=== PATIENT | female | born 1955 | race Caucasian/White ===

== ENCOUNTER 2025-02-01 05:24 | Emergency (ER) | payer OTHER ==
[2025-02-01 05:36] VITALS: PULSE 154; RESP 31; O2SAT 99
[2025-02-01 05:53] LABS: PLATELET COUNT (AUTO) 287 K/uL (150-450); RED BLOOD CELL COUNT(AUTO) 4.80 MIL/uL (4.00-5.20); RED CELL DISTRIBUTION WIDTH 14.6 % (11.5-14.5); WHITE BLOOD COUNT (AUTO) 13.4 K/uL (4.5-11.0)
[2025-02-01 05:59] LABS: CALCIUM, TOTAL 9.0 mg/dL (8.8-10.5); CREATININE 1.02 mg/dL (0.60-1.30); GLOMERULAR FILTR. RATE CALC 54 mL/min (>60); GLUCOSE,RANDOM 229 mg/dL (70-110); SODIUM SERUM 141 mmol/L (136-145); UREA NITROGEN, BLOOD 8 mg/dL (7-18)
[2025-02-01] MEDS ORDERED: IPRATROPIUM BROMIDE 0.5 MG/2.5 ML NEB SOLUTION NEB ONE (06:00)
[2025-02-01] MEDS ORDERED: ALBUTEROL SULFATE 2.5 MG/0.5 ML 5 ML NEB SOLUTION NEB ONE (06:00)
[2025-02-01 06:05] LABS: COVID AG,FIA SOURCE NASAL SWAB
[2025-02-01 06:05] LABS: ASPARTATE AMINOTRANSFERASE 73.0 U/L (15-37); TOTAL PROTEIN, SERUM 7.9 g/dL (6.4-8.2)
[2025-02-01 06:17] LABS: TROPONIN I-HIGH SENSITIVITY 66 ng/L (<51)
[2025-02-01 06:29] LABS: SARS-COV2 (COVID) ANTIGEN,FIA Negative (Negative)
[2025-02-01 06:30] LABS: INFLUENZA TYPE A NEGATIVE FOR TYPE A (NEGATIVE); INFLUENZA TYPE B NEGATIVE FOR TYPE B (NEGATIVE)
[2025-02-01] MEDS ORDERED: IOHEXOL 350 MG/ML 100 ML VIAL ONE (06:42)
[2025-02-01 06:57] LABS: LACTIC ACID 9.0 mmol/L (0.4-2.0)
[2025-02-01] MEDS ORDERED: NOREPINEPHRINE 8 MG/0.9 % NACL 250 ML IV ONE (07:03)
[2025-02-01] MEDS ORDERED: EPINEPHrine 1:10,000 [1 MG/10 ML] SYRINGE ONE ×2 (07:10→12:00)
[2025-02-01] MEDS ORDERED: 0.9% SODIUM CHLORIDE 10 ML SYRINGE IVP ONE (12:00)
== END 2025-02-01 10:55 ==
LOC: EMS 05:50
DX: J96.90 Respiratory failure, unspecified, unspecified whether with hypoxia or hypercapnia (principal); I46.9 Cardiac arrest, cause unspecified; E11.9 Type 2 diabetes mellitus without complications; I10 Essential (primary) hypertension; M06.9 Rheumatoid arthritis, unspecified; Z86.16 Personal history of COVID-19; Z20.822 Contact with and (suspected) exposure to COVID-19
CPT/HCPCS: 99291; 92950; 31500; 96374; 71045; 87426; 80048; 80076; 83605; 83880; 84484; 85025; 85379; 87040; 87804; 36415; 93005; J2919; J0169; 94660; 94760